=== PATIENT | female | born 1965 | race Caucasian/White ===

== ENCOUNTER 2019-07-18 10:43 | Emergency (ER) | payer BC, SELFPAY ==
[2019-07-18 11:04] VITALS: BP 150/85; PULSE 73; RESP 16; TEMP 36.7; O2SAT 100
--- NOTE | 2019-07-18 11:11 | ECG_ITS ---
Measurements Intervals [place] Rate: 65 P: 66 [place]: 117 QRS: 21 QRSD: 90 T: 4 QT: 417 QTc: 434 Interpretive Statements SINUS RHYTHM WITH SHORT [place] INTERVAL BORDERLINE T WAVE ABNORMALITY- INFERIOR LEADS BORDERLINE ECG Electronically Signed On 07-18-2019 11:38:34 CDT by Tye Paige D.O.
[2019-07-18] MEDS: LORAZEPAM INJ 2 MG/ML VIAL 0.5 MG IV PUSH (11:24)
[2019-07-18] MEDS: SODIUM CHLORIDE 0.9% IV 1,000 ML 999 ML IV CONT (11:24)
[2019-07-18 11:25] VITALS: BP 139/85; PULSE 68; RESP 11; O2SAT 100
--- NOTE | 2019-07-18 12:18 | ED.GENADULT ---
HPI - General Adult General Chief complaint: Anxiety Stated complaint: Allergic reaction Time Seen by Provider: 07/18/19 11:00 Source: patient Mode of arrival: ambulatory Limitations: no limitations History of Present Illness HPI narrative: Patient is a 54-year-old female who presents with tingling and dizziness to the emergency department noting that she ate a THC mint. Patient began to feel this way after eating. . On arrival patient hyperventilating and anxious noting tingling in the extremities and heaviness of the body with dizziness. Patient initially did not know that the mint was THC. Patient denies any pain Related Data Allergies Allergy/AdvReac Type Severity Reaction Status Date / Time No Known Allergies Allergy Verified 07/18/19 11:24 Review of Systems Review of Systems: All systems reviewed & are unremarkable except as noted in HPI and below PMFSH Family History Family History (Updated 02/13/18 @ 14:53 by DOCTOR UNKNOWN) Mother Family history of osteoporosis Family history of restless legs syndrome Father Hypertension Family history of elevated blood lipids Family history of cardiovascular disease Acute myocardial infarction Social History Social History Smoking status: Former smoker Second hand tobacco smoke exposure: No Smoking end date: 05/09/97 Alcohol intake: current Gender identity (if verbalized by the patient): Female Exam Narrative: Exam Narrative: GENERAL: Well-appearing, well-nourished, and in no acute distress. HEAD: Normocephalic, atraumatic. EYES: PERRLA and EOMI. ENT: Nares clear, no rhinorrhea or epistaxis. Mucous membranes moist. Oropharynx without tonsillar hypertrophy exudate or other lesions. No angioedema in the oropharynx NECK: Supple. No adenopathy or masses. No stridor CHEST: Clear to auscultation. No respiratory distress. No wheezes rales or rhonchi HEART: Regular rate and rhythm. No murmur heard. Normal peripheral pulses. ABDOMEN: Soft, nontender, nondistended EXTREMITIES: Normal range of motion. No edema. SKIN: Warm, dry, no rash. NEURO: No focal deficits. Alert and oriented x3. Cranial nerves II through XII grossly intact PSYCH: Normal mood and affect. Course Course Emergency Course: Patient in the room in no distress felt appropriate for discharge home Vital Signs Vital signs: Vital Signs Temperature 98.1 F 07/18/19 11:04 Pulse Rate 73 07/18/19 11:04 Respiratory Rate 16 07/18/19 11:04 Blood Pressure 150/85 H 07/18/19 11:04 Pulse Oximetry 100 07/18/19 11:04 Temperature 98.1 F 07/18/19 11:04 Pulse Rate 68 07/18/19 11:25 Respiratory Rate 11 L 07/18/19 11:25 Blood Pressure 139/85 07/18/19 11:25 Pulse Oximetry 100 07/18/19 11:25 Medical Decision Making MDM Narrative Medical decision making narrative: Patient in the room in no distress aware of case findings treatment plan and diagnosis agreeing to follow-up as directed Vital Signs Vital Signs: Vital Signs Temperature 98.1 F 07/18/19 11:04 Pulse Rate 73 07/18/19 11:04 Respiratory Rate 16 07/18/19 11:04 Blood Pressure 150/85 H 07/18/19 11:04 Pulse Oximetry 100 07/18/19 11:04 Temperature 98.1 F 07/18/19 11:04 Pulse Rate 68 07/18/19 11:25 Respiratory Rate 11 L 07/18/19 11:25 Blood Pressure 139/85 07/18/19 11:25 Pulse Oximetry 100 07/18/19 11:25 Discharge Plan Discharge Clinical Impression: Acute anxiety Patient Disposition: Home, Self-Care Condition: Stable Instructions: Antibiotic Form, Anxiety (ED) Additional Instructions: Follow up with your primary care doctor in 5-7 days for re-evaluation. Go to ER for worsening pain, vision changes, nausea/vomiting, fever/chills, weakness, chest pain, shortness of breath, numbness/tingling, slurred speech, difficulty walking, change in mental status etc. or any other concerns. Take any prescribed med
[2019-07-18 12:41] VITALS: BP 136/82; PULSE 72; RESP 16; O2SAT 98
== END 2019-07-18 12:56 | disposition home or self-care (01) ==
PROVIDERS: Emergency Provider Emergency Medicine; PCP Family Medicine
DX: F41.9 Anxiety disorder, unspecified (principal)
CPT/HCPCS: 93005; 96374; 99284; J2060; J7030

== ENCOUNTER → 2020-01-28 12:53 | Outpatient (CLI) | payer BC, SELFPAY ==
--- NOTE | ~2020-01-28 | MM_ITS ---
EXAMINATION: MM screening efra BI w he HISTORY: Screening mammogram TECHNIQUE: Craniocaudal and mediolateral oblique 3-D tomosynthesis images were obtained and synthetic 2-D images were generated. CAD analysis was submitted and interpreted. COMPARISON: 09/01/2018 bilateral digital screening mammogram 09/12/2017 and synthetic left digital mammogram and limited left breast ultrasound 08/22/2017 bilateral digital screening mammogram BREAST PARENCHYMAL COMPOSITION: There are scattered areas of fibroglandular density. FINDINGS: There is no evidence of suspicious mass, calcification, or architectural distortion to sugg est malignancy in either breast. There has been no suspicious interval change. IMPRESSION: 1. No mammographic evidence of malignancy. 2. Recommend routine screening mammography in one year. BI-RADS Category 1: Negative Reviewed, dictated and finalized at location A.
== END ==
PROVIDERS: PCP Family Medicine; Visit Provider Family Medicine
DX: Z12.31 Encounter for screening mammogram for malignant neoplasm of breast (principal)
CPT/HCPCS: 77063; 77067

== ENCOUNTER → 2020-08-18 18:00 | Outpatient (CLI) | payer BC, SELFPAY ==
--- NOTE | ~2020-08-18 | DEXA_ITS ---
Bone Density Report Name: Hannah Rodriguez Age: 55 Sex: Female Ethnicity: White Date of : 1965 Indication: osteopenia; parental hip fracture; postmenopausal Referring Provider: Jackie Philippe Study: Bone densitometry was performed. Exam Date: August 18, 2020 Accession number: [id number] Bone Density: Region BMD T-score Z-score Classification AP Spine (L1-L4) 0.859 -1.7 -0.5 Osteopenia Femoral Neck (Left) 0.718 -1.2 -0.1 Osteopenia Total Hip (Left) 0.845 -0.8 0.0 Normal Femoral Neck (Right) 0.732 -1.1 0.1 Osteopenia Total Hip (Right) 0.842 -0.8 -0.1 Normal Total Hip Mean 0.844 -0.8 -0.1 Normal World Health Organization criteria for BMD impression classify patients as: Normal (T-score at or above -1.0), Osteopenia (T-score between -1.0 and -2.5), or Osteoporosis (T-score at or below -2.5). 10-year Fracture Risk(1): Major Osteoporotic Fracture 12% Hip Fracture 0.4% Reported Risk Factors: [place] (), Neck BMD=0.718, BMI=21.8, parental fracture (1) FRAX(R) Version 3.08. Fracture probability calculated for an untreated patient. Fracture probability may be lower if the patient has received treatment. Previous Exams: Region Exam Age BMD T-score BMD Change BMD Change Date g/cm2 vs Baseline vs Previous AP Spine(L1-L4) 08/18/2020 55 0.859 -1.7 -0.058* -0.058* 08/22/2017 52 0.918 -1.2 Total Hip(Left) 08/18/2020 55 0.845 -0.8 -0.003 -0.003 08/22/2017 52 0.848 -0.8 Total Hip(Right) 08/18/2020 55 0.842 -0.8 -0.020 -0.020 08/22/2017 52 0.862 -0.7 *Denotes significance at 95% confidence level, LSC for AP Spine = 0.022 g/cm2, LSC for Total Hip = 0.027 g/cm2 Clinical Information Provided by Patient: Parent has had a hip fracture Has used the following medications: Vitamin D, Calcium Patient maximum height was 65.5 Menopause Age: 49 Does not regularly consume dairy products Drinks caffeinated beverages Onset of menses at age 14 Number of children 0 Impression: The patient has low bone mass, based on the Total Spine T-score. The patient has an estimated ten-year risk of hip fracture of 0.4% and an estimated ten-year risk of major fracture of 12%, based on the WHO FRAX algorithm. The patient has risk factors, including: parental hip fracture. The BMD for the AP Spine(L1-L4) decreased, changing by -0.058 since the last DXA exam. Discussion: BONE DENSITY IS LOW AT ONE
== END ==
PROVIDERS: PCP Family Medicine; Visit Provider Family Medicine
DX: M85.88 Other specified disorders of bone density and structure, other site (principal); M85.852 Other specified disorders of bone density and structure, left thigh; M85.851 Other specified disorders of bone density and structure, right thigh
CPT/HCPCS: 77080

== ENCOUNTER 2020-11-19 06:59 | Outpatient (CLI) | payer BC, SELFPAY ==
[2020-11-25 11:28] LABS: Endomysial Ab (IgA) Screen Negative (Negative)
== END 2020-11-19 07:00 | disposition home or self-care (01) ==
LOC: ANHLAB 07:01
PROVIDERS: PCP Family Medicine; Visit Provider Physician Assistant
DX: R19.7 Diarrhea, unspecified (principal); R10.9 Unspecified abdominal pain
CPT/HCPCS: 36415; 86255

== ENCOUNTER → 2021-03-03 07:15 | Outpatient (CLI) | payer BC, SELFPAY ==
--- NOTE | ~2021-03-03 | MM_ITS ---
EXAMINATION: MM screening efra BI w he HISTORY: Screening mammogram TECHNIQUE: Craniocaudal and mediolateral oblique 3-D tomosynthesis images were obtained and synthetic 2-D images were generated. CAD analysis was submitted and interpreted. COMPARISON: 01/28/2020, 09/01/2018 bilateral digital screening mammogram examinations diagnostic left mammogram and limited left breast ultrasound 08/22/2017 bilateral digital screening mammogram BREAST PARENCHYMAL COMPOSITION: There are scattered areas of fibroglandular density. FINDINGS: There is no evidence of suspicious mass, calcification, or architectural distortion to sugg est malignancy in either breast. There has been no suspicious interval change. IMPRESSION: 1. No mammographic evidence of malignancy. 2. Recommend routine screening mammography in one year. BI-RADS Category 1: Negative Reviewed, dictated and finalized at location A.
== END ==
PROVIDERS: PCP Family Medicine; Visit Provider Family Medicine
DX: Z12.31 Encounter for screening mammogram for malignant neoplasm of breast (principal)
CPT/HCPCS: 77063; 77067

== ENCOUNTER 2022-03-19 07:39 | Outpatient (CLI) | payer BC, SELFPAY | END 2022-03-19 07:40 | disposition home or self-care (01) | LOC: ANHAUDIO 07:40 | PROVIDERS: PCP Family Medicine; Visit Provider Physician Assistant | DX: H91.90 Unspecified hearing loss, unspecified ear (principal) | CPT/HCPCS: 92552; 92556; 92567 ==

== ENCOUNTER → 2022-06-04 10:12 | Outpatient (CLI) | payer BC, SELFPAY ==
--- NOTE | ~2022-06-04 | MM_ITS ---
EXAMINATION: MM screening efra BI w he HISTORY: Screening TECHNIQUE: Craniocaudal and mediolateral oblique 3-D tomosynthesis images were obtained and synthetic 2-D images were generated. CAD analysis was submitted and interpreted. COMPARISON: Comparison to multiple prior studies sequentially, with oldest reviewed study dated 08/22. BREAST PARENCHYMAL COMPOSITION: Breast composed of scattered areas of fibroglandular density FINDINGS: Right breast asymmetries are unchanged. There is no evidence of suspicious mass, calcificat ion, or architectural distortion to suggest malignancy in either breast. There has been no suspicious interval change. IMPRESSION: 1. No mammographic evidence of malignancy. 2. Recommend routine screening mammography in one year. BI-RADS Category 1: Negative Reviewed, dictated and finalized at location A. D SALES TRAINER
== END ==
PROVIDERS: PCP Family Medicine; Visit Provider Family Medicine
DX: Z12.31 Encounter for screening mammogram for malignant neoplasm of breast (principal)
CPT/HCPCS: 77063; 77067

== ENCOUNTER → 2023-06-29 10:11 | Outpatient (CLI) | payer BC, SELFPAY ==
--- NOTE | ~2023-06-29 | MM_ITS ---
EXAMINATION: MM screening efra BI w he HISTORY: Screening TECHNIQUE: Craniocaudal and mediolateral oblique 3-D tomosynthesis images were obtained and synthetic 2-D images were generated. CAD analysis was submitted and interpreted. COMPARISON: Comparison to multiple prior studies sequentially, with oldest reviewed study dated 11/2017. BREAST PARENCHYMAL COMPOSITION: There are scattered areas of fibroglandular density. FINDINGS: There is no evidence of suspicious mass, calcification, or architectural distortion to sugg est malignancy in either breast. There has been no suspicious interval change. IMPRESSION: 1. No mammographic evidence of malignancy. 2. Recommend routine screening mammography in one year. BI-RADS Category 1: Negative Reviewed, dictated and finalized at location A. AR TRIMMER
--- NOTE | ~2023-06-29 | DEXA_ITS ---
Bone Density Report Name: KADIE VERDUGO Age: 58 Sex: Female Ethnicity: White Date of : 1965 Indication: osteopenia; parental hip fracture; postmenopausal Referring Provider: JOAN RODRÍGUEZ Study: Bone densitometry was performed. Exam Date: June 29, 2023 Accession number: [id number] Bone Density: Region BMD T-score Z-score Classification AP Spine (L1-L4) 0.822 -2.0 -0.7 Osteopenia Femoral Neck (Left) 0.711 -1.2 0.0 Osteopenia Total Hip (Left) 0.785 -1.3 -0.4 Osteopenia Femoral Neck (Right) 0.698 -1.4 -0.1 Osteopenia Total Hip (Right) 0.802 -1.1 -0.2 Osteopenia Total Hip Mean 0.794 -1.2 -0.3 Osteopenia World Health Organization criteria for BMD impression classify patients as: Normal (T-score at or above -1.0), Osteopenia (T-score between -1.0 and -2.5), or Osteoporosis (T-score at or below -2.5). 10-year Fracture Risk(1): Major Osteoporotic Fracture 14% Hip Fracture 0.6% Reported Risk Factors: [place] (), Neck BMD=0.698, BMI=23.7, parental fracture (1) FRAX(R) Version 3.08. Fracture probability calculated for an untreated patient. Fracture probability may be lower if the patient has received treatment. Previous Exams: Region Exam Age BMD T-score BMD Change BMD Change Date g/cm2 vs Baseline vs Previous AP Spine(L1-L4) 06/29/2023 58 0.822 -2.0 -0.096* -0.037* 08/18/2020 55 0.859 -1.7 -0.058* -0.058* 08/22/2017 52 0.918 -1.2 Total Hip(Left) 06/29/2023 58 0.785 -1.3 -0.063* -0.060* 08/18/2020 55 0.845 -0.8 -0.003 -0.003 08/22/2017 52 0.848 -0.8 Total Hip(Right) 06/29/2023 58 0.802 -1.1 -0.061* -0.041* 08/18/2020 55 0.842 -0.8 -0.020 -0.020 08/22/2017 52 0.862 -0.7 *Denotes significance at 95% confidence level, LSC for AP Spine = 0.022 g/cm2, LSC for Total Hip = 0.027 g/cm2 Clinical Information Provided by Patient: Parent has had a hip fracture Has used the following medications: Vitamin D, Calcium Patient maximum height was 65.5 Menopause Age: 49 Drinks caffeinated beverages Onset of menses at age 14 Number of children 0 Impression: The patient has low bone mass, based on the Total Spine T-score. The patient has an estimated ten-year risk of hip fracture of 0.6% and an estimated ten-year risk of major fracture of 14%, based on the WHO FRAX algorithm. The patient has risk fact
== END ==
PROVIDERS: PCP Family Medicine; Visit Provider Physician Assistant
DX: Z12.31 Encounter for screening mammogram for malignant neoplasm of breast (principal); Z78.0 Asymptomatic menopausal state; M85.88 Other specified disorders of bone density and structure, other site; M85.852 Other specified disorders of bone density and structure, left thigh; M85.851 Other specified disorders of bone density and structure, right thigh
CPT/HCPCS: 77063; 77067; 77080

== ENCOUNTER 2024-07-10 15:29 | Outpatient (CLI) | payer BC, SELFPAY | END 2024-07-10 15:30 | disposition home or self-care (01) | LOC: MICIMG 15:30 | PROVIDERS: PCP Family Medicine; Visit Provider Family Medicine | DX: Z12.31 Encounter for screening mammogram for malignant neoplasm of breast (principal) | CPT/HCPCS: 77063; 77067 ==

== ENCOUNTER 2024-07-20 00:56 | Day surgery (SDC) | payer BC, SELFPAY ==
[2024-07-10 10:55] VITALS: BMI 23.8
--- OUTSIDE RECORDS SUMMARY | 2024-07-20 00:59 | XMS_ITS | Encounter Summary ---
Author Organization [facility] Address [address] [place] [address] Care Team Providers Care Training Director Name Role Phone Unavailable Primary Care Provider Unavailabl e Encounter Details Date Type Department Care Team (Late st Contact Info) Description 12/23/2000 Outpatient Historical [facility] MODEL MAKER - Medical [place] [phone] [facility] [place] [address] [address] Justin Garcia MD [address] [facility] [address] [address] Social History Tobacco Use Types Packs/Day Years Used Date Smoking Tobacco: Never Assessed Comments Unknown Sex and Gender Information Value Date Recorded Sex Assigned at Not on file 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
--- OUTSIDE RECORDS SUMMARY | 2024-07-20 00:59 | XMS_ITS | Referral Summary ---
Author Organization [facility] Address [address] [place] [address] Care Team Providers Care Sales Team Recruiter Name Role Phone Medina Brody MD Primary Care Provider [phone] Source Comments [facility],non-owned Affiliates and Associated Physician Practices is amultiple site organization consisting of ambulatory clinics and hospital sitesin [place], [place], [place] and [place]. This disclosure is being madepursuant to the Care Everywhere program and may not contain all information available regarding this patient. Last updated 18.[facility] Allergies Active Allergy Reactions Criticality Noted Date Comments Oxycodone-Aspirin Nausea and/or Vomiting 2016 Tacrolimus Swelling,Eye Redness 12/16/2023 Medications * Be aware that medications may not be up to date on this document. Alwaysverify current medications with the patient. Medication Sig Dispensed Refills Start Date End Date Status melatonin 3 MG tablet Take 3 mg by mouth nightly as needed for Insomnia Active Vitamin D3, cholecalciferol, 2000 UNITS tablet Take 1 (one) tablet by mouth 12/03/2013 Active zolpidem (AMBIEN) 10 MG tablet 0 02/16/2018 Active Calcium Citrate 250 MG Take by mouth once daily Active cyanocobalamin (VITAMIN B-12) 1000 MCG tablet Take 1 (one) tablet by mouth once daily Active Opzelura 1.5 % CREA Apply 1 g to affected area 2 times daily 06/24/2023 Active melatonin (HM Melatonin) 5 MG tablet Take 1 (one) tablet by mouth at bedtime Active Active Problems Problem Noted Date Diagnosed Date Malignant melanoma of right knee Immunizations Name Administration Dates Next Due Covid Moderna primary monovalent 12+ yr 0.5mL ,06/20/2020 INFLUENZA VACCINE 01/13/2022 INFLUENZA VACCINE, QUADR. (F LUZONE; FLULAVAL; FLUARIX; AFLURIA QUADRIVALENT; 6MO+), 0.5 ML (IIV4) 01/15/2020 Social History Tobacco Use Types Packs/Day Years Used Date Smoking Tobacco: Former Cigarettes Q uit: 05/09/2001 Smokeless Tobacco: Never Alcohol Use Standard Drinks/Week Comments Yes 4 (1 standard drink = 0.6 oz pur e alcohol) Sex and Gender Information Value Date Recorded Sex Assigned at Not on file Gender Identity Not on file Sexual Orientation Not on file Last Filed Vital Signs Vital Sign Reading Time Taken Comments Blood Pressure 111/72 02/15/2022 2:11 PM CDT Pulse 73 02/15/2022 2:11 PM CDT Temperature 36.7 C (98 F) 02/15/2022 2:11 PM CDT Respiratory Rate 18 02/15/2022 2:11 PM CDT Oxygen Saturation 97% 02/15/2022 2:11 PM CDT Inhaled Oxygen Concentration - - Weight 61.2 kg (135 lb) 02/15/2022 2:11 PM CDT Height 165.1 cm (5' 5 ) 02/15/2022 2:11 PM CDT Body Mass Index 22.47 02/15/2022 2:11 PM CDT Functional Status Functional Status Response Date of Assess ment Is person deaf or have serious hearing difficult y? No 08/05/2016 Is person blind or have serious difficulty seein g? No 08/05/2016 Does person have serious dif ficulty walking/climbing stairs? No 08/05/2016 Does person have difficulty dressing/bathing? No 08/05/2016 Does person have difficulty doing errands alone? No 08/05/2016 Cognitive Status Response Date of Assessm ent Does person have difficulty concentrating/remembering/making decisions? No 08/05/2016 Plan of Treatment Not on file Advance Directives Documents on File Type Date Recorded Patient Nutter Up Expl anation Adv Directive/Living Will/POA 08/06/2016 9:54 PM Care Teams Sales Team Recruiter Relationship Specialty Start Date End Date Medina Brody MD [address] [place] [address] PCP - General 01/03/19
--- OUTSIDE RECORDS SUMMARY | 2024-07-20 00:59 | XMS_ITS | Encounter Summary ---
Author Organization [facility] Health Address [address] [facility] [place] [address] Care Team Providers Care Clinical Trial Head Name Role Phone Unknown, Provider Primary Care Provider Medina Carmen MD Primary Care Provider [phone] Encounter Details Date Type Department Care Team (Late st Contact Info) Description 09/15/[address] [facility] Care DermPath Lab [address] [facility] [place] [address] Janay Barajas MD [address] [place] [address] Social History Tobacco Use Types Packs/Day Years Used Date Smoking Tobacco: Former Cigarettes Q uit: 05/09/2001 Smokeless Tobacco: Never Alcohol Use Standard Drinks/Week Comments Yes 4 (1 standard drink = 0.6 oz pur e alcohol) Sex and Gender Information Value Date Recorded Sex Assigned at Not on file Gender Identity Not on file Sexual Orientation Not on file documented as of this encounter Functional Status Functional Status Response Date of [...] person have difficulty concentrating/remembering/making decisions? No 08/05/2016 documented as of this encounter Plan of Treatment Not on file documented as of this encounter Procedures Procedure Name Priority Date/Time Associated Diagnosis Comments DERMATOPATHOLOGY Routine 09/14/2018 12:0 0 AM CDT documented in this encounter Results * DERMATOPATHOLOGY (09/14/2018 12:00 AM CDT) Case Report Dermatopathology Report Case: [id number] Authorizing Provider: Janay Barajas MD Collected: 09/14/2018 12:00 AM Pathologist: Delfina Hyman MD Received: 09/15/2018 10:48 AM Specimen: Skin, right FA 12:59 PM CDT DERMATOPATHOLOGY LABORATORY Final Diagnosis Specimen A. SKIN, right FA: SOLAR LENTIGO (L81.4) 12:59 PM CDT DERMATOPATHOLOGY LABORATORY Clinical History R/O melanoma, nevus. Hx of MM brown papule. 12:59 PM CDT DERMATOPATHOLOGY LABORATORY Gross Description Specimen A: Received is one formalin filled container labeled with the patient's name and designated right FA. The specimen consists of a shave measuring [id number]. Jar 0. 12:59 PM CDT DERMATOPATHOLOGY LABORATORY Microscopic Description Specimen A. SKIN, right FA: There is orthokeratosis. There is a slight increase in epidermal thickness with lentiginous buds of hyperpigmented keratinocytes. The number of melanocytes is only mildly increased. In the dermis, there is basophilic degeneration of elastic fibers. 12:59 PM CDT DERMATOPATHOLOGY LABORATORY Disclaimer An external and internal positive and negative controls are appropriate for the histochemical, immunohistochemical and immunofluorescence stain(s) in this case (if any), except where stated explicitly. The performance characteristics of the stain(s) cited in this report were developed and its performance characteristic determined by the Dermatopathology Laboratory at [facility], directed by Dr. Marie Queen. These tests need not be, and therefore are not, approved by the [place] Food and Drug Administration. The tests are used for clinical purposes. Billing Codes Specimen Charges Stain Charges 03359 1 9 12:59 PM CDT DERMATOPATHOLOGY LABORATORY Embedded Images 9 12:59 PM CDT DERMATOPATHOLOGY LABORATORY Pathology/Cytolog y TISSUE SPECIMEN FROM SKIN / Unknown 09/14/2018 09/15/2018 10:48 AM CDT Janay Barajas MD LAB - PATHOLOGY/CYTO LOGY ORDERABLES DERMATOPATHOLOGY LABORATORY [facility] - Department of Dermatology [address] [facility] 5th Floor Lab [address] [phone] documented in this encounter Visit Diagnoses Not on filedocumented in this encounter Care Teams Clinical Trial Head Relationship Specialty Start Date End Date Unknown, Provider PCP - General 08/29/17 01/02/19 Medina Brody MD [address] [place] [address] PCP - General 01/03/19 documented as of this encounter
--- OUTSIDE RECORDS SUMMARY | 2024-07-20 00:59 | XMS_ITS | Clinical Summary ---
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 Gender Identity Not on file Sexual Orientation Not on file Plan of Treatment Health Maintenance Due Date Last Done Comments DTAP/TDAP/TD VACCINES (1 - Tdap) 02/02/1983 CERVICAL CANCER SCREENING 02/02/1994 BREAST CANCER SCREENING 2004 COLORECTAL SCREENING 02/02/2009 Colorectal Cancer Screening 02/02/2009 FIT-DNA Q 3 years 02/02/2009 FIT/FOBT Q 1 year 02/02/2009 Flex Sig/CT Colonography Q 5 years 02/02/2009 ZOSTER VACCINE (1 of 2) 02/02/2014 INFLUENZA VACCINE (#1) 2023 RSV VACCINE (60+ or ) (1 - 1-dose 75+ series) 02/02/2039 HEPATITIS B VACCINES Aged Out No long er eligible based on patient's age to complete this topic PNEUMOCOCCAL VACCINE 0-49 YEARS Aged Out No longer eligible based on patient's age to complete this topic
--- OUTSIDE RECORDS SUMMARY | 2024-07-20 00:59 | XMS_ITS | Encounter Summary ---
Author Organization [facility] Address [address] [place] [address] Care Team Providers Care Derrick Builder Name Role Phone Unavailable Primary Care Provider Unavailabl e Encounter Details Date Type Department Care Team (Late st Contact Info) Description 12/10/1999 Outpatient Historical [facility] CLEANER AND PREPARER - Medical [place] [facility] [id number] [facility] [address] [address] Saul Ford MD [address] [place], [place] [id number] Social History Tobacco Use Types Packs/Day Years Used Date Smoking Tobacco: Never Assessed Comments Unknown Sex and Gender Information Value Date Recorded Sex Assigned at Not on file 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
--- OUTSIDE RECORDS SUMMARY | 2024-07-20 00:59 | XMS_ITS | Referral Summary ---
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 Name Role Phone Medina Brody MD Primary Care Provider [phone] Allergies Active Allergy Reactions Criticality Noted Date Comments Oxycodone-Aspirin Nausea And Vomiting 7 Tacrolimus Eye irritation,Swelling Medium 12/16/2023 Medications calcium citrate 250 mg calcium tablet tablet Take by mouth daily Active cholecalciferol (VITAMIN D-3) 2000 unit tablet Take 1 tablet (2,000 Units total) by mouth 4 Active cyanocobalamin (Vitamin B-12) 1,000 mcg tablet Take 1 tablet (1,000 mcg total) by mouth daily Active melatonin tablet Take 1 tablet (3 mg total) by mouth nightly as needed Active zolpidem (AMBIEN) 10 mg tablet 8 Active Opzelura 1.5 % cream Apply topically 2 (two) times a day 4 Active Active Problems Problem Noted Date Diagnosed Date Malignant melanoma of right knee 09/23/2022 09/23/2022 Social History Tobacco Use Types Packs/Day Years Used Date Smoking Tobacco: Former Smokeless Tobacco: Never Comments Unknown Sex and Gender Information Value Date Recorded Sex Assigned at Not on file Legal Sex Female 8:44 PM SHIPPING CLERK/ADMIN Gender Identity Female 03/16/2023 6:26 PM SHIPPING CLERK/ADMIN Sexual Orientation Lesbian 03/16/2023 6: 26 PM SHIPPING CLERK/ADMIN Last Filed Vital Signs Vital Sign Reading Time Taken Comments Blood Pressure 115/71 03/21/2024 11:30 AM SHIPPING CLERK/ADMIN Pulse 81 03/21/2024 11:30 AM SHIPPING CLERK/ADMIN Temperature 36.2 C (97.1 F) 03/21/2024 11:30 AM SHIPPING CLERK/ADMIN Respiratory Rate 14 03/21/2024 11:30 AM SHIPPING CLERK/ADMIN Oxygen Saturation 96% 03/21/2024 11:30 AM SHIPPING CLERK/ADMIN Inhaled Oxygen Concentration - - Weight 65.3 kg (144 lb) 03/21/2024 11:30 AM SHIPPING CLERK/ADMIN Height 166.4 cm (5' 5.5 ) 03/21/2024 11:30 AM CS T Body Mass Index 23.6 03/21/2024 11:30 AM SHIPPING CLERK/ADMIN Plan of Treatment Not on file Procedures Procedure Name Priority Date/Time Associated Diagnosis Comments COLONOSCOPY IMAGES 09/16/2014 from Last 3 Months or Most Recently Relevant to Health Maintenance Results * COLONOSCOPY IMAGES (09/16/2014) Anatomical Region Laterality Modality Other Narrative 09/16/2014 Ordered by an unspecified provider. Historical Provider GI PROCEDURE ORDERABLES F inal Result from Last 3 Months or Most Recently Relevant to Health Maintenance [place] [employer] [place] [employer] [place] [facility] Care Teams Mat Making Machine Tender Relationship Specialty Start Date End Date Medina Brody MD PCP - General Family Medicine 07/03/21
--- OUTSIDE RECORDS SUMMARY | 2024-07-20 00:59 | XMS_ITS | Patient Health Summary ---
Author Organization [facility] [employer] Address [address] [place] [address] Care Team Providers Care Hematologist Name Role Phone Medina Brody MD Primary Care Provider [phone] Note from [facility],non-owned Affiliates and Associated Physician Practices is amultiple site organization consisting of ambulatory clinics and hospital sitesin [place], [place], [place] and [place]. This disclosure is being madepursuant to the Care Everywhere program and may not contain all information available regarding this patient. Last updated 18.[facility] Allergies * Oxycodone-Aspirin(Nausea and/or Vomiting) * Tacrolimus(Swelling,Eye Redness) Medications * Be aware that medications may not be up to date on this document. Alwaysverify current medications with the patient. * melatonin 3 MG tablet Take 3 mg by mouth nightly as needed for Insomnia * Vitamin D3, cholecalciferol, 2000 UNITS tablet(Started 12/03/2013) Take 1 (one) tablet by mouth * zolpidem (AMBIEN) 10 MG tablet(Started 02/16/2018) * Calcium Citrate 250 MG Take by mouth once daily * cyanocobalamin (VITAMIN B-12) 1000 MCG tablet Take 1 (one) tablet by mouth once daily * Opzelura 1.5 % CREA(Started 06/24/2023) Apply 1 g to affected area 2 times daily * melatonin (HM Melatonin) 5 MG tablet Take 1 (one) tablet by mouth at bedtime Active Problems Problem Noted Date Diagnosed Date Malignant melanoma of right knee Immunizations * Covid Moderna primary monovalent 12+ yr 0.5mL(Given 07/18/2020, 06/20/2020) * INFLUENZA VACCINE(Given 01/13/2022) * INFLUENZA VACCINE, QUADR. (FLUZONE; FLULAVAL; FLUARIX; AFLURIA QUADRIVALENT; 6MO+), 0.5 ML (IIV4)(Given 01/15/2020) Social History Tobacco Use Types Packs/Day Years [...] Mass Index 22.47 02/15/2022 2:11 PM CDT Procedures * [place] ALLERGY PATCH TESTS(Performed 02/27/2024) Performed for Allergic contact dermatitis, unspecified trigger * DERMATOPATHOLOGY(Performed 06/21/2022) * XR CHEST 2VW(Performed 02/15/2022) Performed for Malignant melanoma of right knee (HCC) * DERMATOPATHOLOGY(Performed 05/13/2021) * XR CHEST 2VW(Performed 01/28/2021) Performed for Malignant melanoma of right knee (HCC) * XR CHEST 2VW(Performed 01/23/2020) Performed for Malignant melanoma of right knee (HCC) * XR CHEST 2VW(Performed 01/03/2019) Performed for Malignant melanoma of right knee (HCC) * DERMATOPATHOLOGY(Performed 09/14/2018) * XR CHEST 2VW(Performed 05/15/2018) Performed for Malignant melanoma of right knee (HCC) * DERMATOPATH TECHNICAL REPORT(Performed 03/16/2018) * IMAGING/RADIOLOGY/XRAY RESULTS ORDER(Performed 11/29/2017) * XR CHEST 2VW(Performed 03/09/2017) * COMPREHENSIVE METABOLIC PANEL(Performed 03/09/2017) * CBC W AUTO DIFFERENTIAL(Performed 03/09/2017) * CBC W AUTO DIFFERENTIAL(Performed 03/09/2017) * PATHOLOGY/CYTOLOGY REPORT ORDER(Performed 08/07/2016) * CARDIAC RHYTHM STRIP ORDER(Performed 08/07/2016) * OXYGEN(Performed 08/05/2016) * PATHOLOGY TISSUE EXAM (STL)(Performed 08/05/2016) Performed for Malignant melanoma of knee, right (HCC) * EXCISION LESION WITH SENTINEL NODE BIOPSY(Performed 08/05/2016) Performed for Malignant melanoma of knee, right (HCC) * NM LYMPHOSCINTIGRAPHY(Performed 08/05/2016) Performed for Malignant melanoma of right knee (HCC) * PATHOLOGY/GENETICS HISTORICAL-ONBASE(Performed 08/05/2016) * XR CHEST 2VW(Performed 07/28/2016) * EKG 12-LEAD(Performed 07/28/2016) * DERMATOPATHOLOGY(Performed 07/05/2016) Results * WA ALLERGY PATCH TESTS (02/27/2024 9:33 AM CDT) Narrative Paige Ibarra - 02/27/2024 9:33 AM CDT Paige Ibarra 02/27/2024 9:34 AM Patient here today for patch testing per order Delfina Sheppard MD. Patch test(s) to be tested: (Series /Quantity) Bulgarian Core / 89 Cosmetic / 39 Patches applied to patient as shown in Annotated Imaging. ANASTASIYA De León Delfina Hyman MD PROCEDURE/MINOR RAMÍREZ RGICAL ORDERABLES * DERMATOPATHOLOGY (06/21/2022 12:00 AM MASTER CARPENTER) Only the most recent of4 resultswithin the time period is included. Case Report Dermatopathology Report Case: [id number] Authorizing Provider: Janay Barajas MD Collected: 06/21/2022 12:00 AM Ordering Location: [facility] DermPath Lab Received: 06/22/2022 12:51 PM Pathologist: Delfina Hyman MD Specimen: Skin, left leg 3:46 PM [facility] DERMATOPATHOLOGY LABORATORY Final Diagnosis Specimen A. SKIN, left leg: PSORIASIFORM DERMATITIS (L44.8) (see microscopic description and comment) 3:46 PM [facility] DERMATOPATHOLOGY LABORATORY Clinical History Pinl papule R/O SCCIS 3:46 PM [facility] DERMATOPATHOLOGY LABORATORY Gross Description Specimen A: Received is one formalin filled container labeled with the patient's name and designated left leg. The specimen consists of a shave biopsy measuring 7x5x1 mm. Jar 0. 3:46 PM [facility] DERMATOPATHOLOGY LABORATORY Microscopic Description Specimen A. SKIN, left leg: There is psoriasiform hyperplasia of the epidermis with focal parakeratosis and spongiosis. There is a superficial, mainly lymphohistiocytic inflammatory infiltrate. Grocott's methenamine silver (GMS) stain is negative for fungal elements in the sections examined. Mib-1 stain highlights proliferating keratinocytes within the lower epidermis. COMMENT: The histological differential diagnosis includes a psoriasiform keratosis and early / partially treated psoriasis. 3:46 PM [facility] DERMATOPATHOLOGY LABORATORY Disclaimer An external and internal positive and negative controls are appropriate for the histochemical, immunohistochemical and immunofluorescence stain(s) in this case (if any), except where stated explicitly. The performance characteristics of the stain(s) cited in this report were developed and its performance characteristic determined by the Dermatopathology Laboratory at [facility], directed by Dr. Marie Queen. These tests need not be, and therefore are not, approved by the [place] Food and Drug Administration. The tests are used for clinical purposes. Billing Codes Specimen Charges Stain Charges 16190 1 [id number] 54705 1 1 3 3:46 PM [facility] DERMATOPATHOLOGY LABORATORY Embedded Images 3:46 PM [facility] DERMATOPATHOLOGY LABORATORY Pathology/Cytolog y TISSUE SPECIMEN FROM SKIN / Unknown 06/21/2022 06/22/2022 12:51 PM MASTER CARPENTER Janay Barajas MD LAB - PATHOLOGY/CYTO LOGY ORDERABLES DERMATOPATHOLOGY LABORATORY [facility] - Department of Dermatology [place] [address] [facility] [place] [address], [facility] [phone] * XR CHEST 2VW (02/15/2022 2:55 PM CDT) Only the most recent of7 resultswithin the time period is included. Anatomical Region Laterality Modality Chest Radiographic Khadra ging 02/15/2022 3:16 PM CDT Narrative 02/15/2022 4:50 PM CDT PROCEDURE: XR CHEST 2VW, DATE/TIME OF EXAM: 02/15/2022 2:55 PM, LOCATION [facility] INDICATION: C43.71: Malignant melanoma of right knee (CMS/HCC) COMPARISON: 01/28/2021 FINDINGS/IMPRESSION: The lungs are clear of consolidation. No pleural effusion or pneumothorax. Heart size and mediastinal contours are normal. No acute osseous abnormality. Report dictated by Manny Reyes MD (president & ceo [employer]). Ozzie Weinstein have personally reviewed and interpreted this examination/study. > Interpreting Provider: Ozzie Caal on 02/15/2022 4:50 PM Procedure Note Ozzie Caal MD - 02/15/2022 PROCEDURE: XR CHEST 2VW, DATE/TIME OF EXAM: 02/15/2022 2:55 PM, LOCATION [facility] INDICATION: C43.71: Malignant melanoma of right knee (CMS/HCC) COMPARISON: 01/28/2021 FINDINGS/IMPRESSION: The lungs are clear of consolidation. No pleural effusion orpneumothorax. Heart size and mediastinal contours are normal. No acute osseous abnormality. Report dictated by Manny Reyes MD (president & ceo [employer]). Ozzie Weinstein have personally reviewed and interpreted this examination/study. > Interpreting Provider: Ozzie Caal on 02/15/2022 4:50 PM Alfredo Cortés MD DIAGNOSTIC IMAGING O RDERABLES * DERMATOPATH TECHNICAL REPORT (03/16/2018 12:00 AM MASTER CARPENTER) Case Report Dermatopathology Report Case: [id number] Authorizing Provider: Janay Barajas MD Collected: 03/16/2018 12:00 AM Pathologist: Moni Murray MD Received: 03/20/2018 06:39 AM Specimen: Skin, mid back 10:40 AM [facility] DERMATOPATHOLOGY LABORATORY Clinical History 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 Braxton papule. Check margins. 10:40 AM [facility] DERMATOPATHOLOGY LABORATORY Gross Description Specimen A: Received is one formalin filled container labeled with the patient's name and designated mid back. The specimen consists of a shave measuring 0u3m5wp. The margin is inked green. Jar 0. [facility] Dermatopathology Laboratory performed the technical component only. 10:40 AM [facility] DERMATOPATHOLOGY LABORATORY Embedded Images 10:40 AM [facility] DERMATOPATHOLOGY LABORATORY DISCLAIMER An external and internal positive and negative controls are appropriate for the histochemical, immunohistochemical and immunofluorescence stain(s) in this case (if any), except where stated explicitly. The performance characteristics of the stain(s) cited in this report were developed and its performance characteristic determined by the Dermatopathology Laboratory at [facility]. These tests need not be, and therefore are not, approved by the [place] Food and Drug Administration. The tests are used for clinical purposes. 10:40 AM [facility] DERMATOPATHOLOGY LABORATORY Pathology/Cytolog y TISSUE SPECIMEN FROM SKIN / Unknown 03/16/2018 03/20/2018 6:39 AM MASTER CARPENTER Janay Barajas MD LAB - PATHOLOGY/CYTO LOGY ORDERABLES DERMATOPATHOLOGY LABORATORY [facility] - Department of Dermatology [facility] [facility] [facility] [place] [address], [facility] [phone] * IMAGING/RADIOLOGY/XRAY RESULTS ORDER (11/29/2017 7:05 AM CDT) Anatomical Region Laterality Modality Other Narrative 11/29/2017 7:05 AM CDT Ordered by an unspecified provider. Scanned Document IMAGING * CBC W AUTO DIFFERENTIAL (03/09/2017 10:19 AM CDT) Only the most recent of2 resultswithin the time period is included. WBC 4.1 3.5 - 10.5 10 3/uL [facility] RBC 4.70 3.90 - 5.00 10 6/uL [facility] Hemoglobin 13.5 12.0 - 15.5 g/dL [facility] Hematocrit 41.1 35.0 - 45.0 % [facility] MCV 87.4 81.0 - 97.0 fL [facility] MCH 28.7 28.0 - 34.0 pg [facility] MCHC 32.8 32.0 - 36.0 g/dL [facility] Platelet Count 251 150 - 400 10 3/uL [facility] RDW-SD 40.0 36.0 - 50.0 fL [facility] RDW-CV 12.5 11.2 - 14.8 % [facility] MPV 11.0 9.3 - 12.8 fL [facility] nRBC Absolute 0.00 0 10 3/uL [facility] nRBC Auto 0.0 0 /100 WBC [facility] Neutrophils % 55.8 35.0 - 70.0 % [facility] Lymphocytes % 33.2 19.7 - 55.1 % [facility] Monocytes % 6.6 3.0 - 15.0 % [facility] Eosinophils % 3.9 0.0 - 6.0 % [facility] Basophil % 0.5 0.0 - 1.5 % [facility] Neutrophils Absolute 2.3 1.6 - 7.0 10 3/uL [facility] Lymphocyte Absolute 1.4 0.8 - 2.9 10 3/uL [facility] Monocytes Absolute 0.27 0.14 - 0.66 10 3/uL [facility] Eosinophils Absolute 0.16 0.00 - 0.22 10 3/uL [facility] Basophils Absolute 0.02 0.00 - 0.06 10 3/uL [facility] Immature Granulocytes % 0.0 0.0 - 1.0 % [facility] Blood specimen (specimen) BLOOD SPECIMEN / Unknown 03/09/2017 10:19 AM CDT 03/09/2017 10:51 AM CDT Alfredo Cortés MD LAB - HEMATOLOGY ORD ERABLES [address] [phone] * COMPREHENSIVE METABOLIC PANEL (03/09/2017 10:19 AM CDT) BUN 13 7 - 26 mg/dL [facility] Creatinine 0.6 0.6 - 1.2 mg/dL [facility] Sodium 142 136 - 145 mmol/L [facility] Potassium 4.1 3.5 - 4.5 mmol/L [facility] Chloride 104 98 - 107 mmol/L [facility] CO2 28 22 - 29 mmol/L [facility] Glucose 86 70 - 115 mg/dL [facility] Calcium 9.4 8.4 - 10.2 mg/dL [facility] Protein Total 8.1 6.0 - 8.3 g/dL [facility] Albumin 4.2 3.4 - 5.0 g/dL [facility] Bilirubin Total 0.4 0.2 - 1.2 mg/dL [facility] Alkaline Phosphatase 89 40 - 150 Units/L [facility] ALT 21 0 - 55 Units/L [facility] AST 20 5 - 34 Units/L [facility] Anion Gap 14 8 - 18 [facility] BUN/Creatinine Ratio 22 7 - 23 [facility] Osmolality Calculated 293 270 - 300 mOsm/kg [facility] Albumin/Globulin Ratio 1.1 1.1 - 2.3 [facility] eGFR >60 >60 mL/min/1.7 3 m2 [facility] Blood specimen (specimen) BLOOD SPECIMEN / Unknown 03/09/2017 10:19 AM CDT 03/09/2017 10:51 AM CDT Alfredo Cortés MD LAB - CHEMISTRY [facility] [address] [phone] * PATHOLOGY/CYTOLOGY REPORT ORDER (08/07/2016 1:24 AM CDT) Narrative 08/07/2016 1:24 AM CDT Ordered by an unspecified provider. Scanned Document LAB - PATHOLOGY/CYTO LOGY ORDERABLES * CARDIAC RHYTHM STRIP ORDER (08/07/2016 1:24 AM CDT) Narrative 08/07/2016 1:24 AM CDT Ordered by an unspecified provider. Scanned Document CARDIAC SERVICES ORD ERABLES * GROSS + MICRO EXAM (STL) (08/05/2016 12:00 PM CDT) Case Report Surgical Pathology Report Case: [id number] Authorizing Provider: Alfredo Cortés MD Collected: 08/05/2016 12:00 PM [facility]ing [facility] Received: 08/05/2016 03:47 PM Pathologist: Rosaura Reddy MD Specimens: A) - Gravity Lymph Node, Right groin sentinel lymph node stitch at hotspot B) - Lesion, right knee melanoma stitch at 12 oclock C) - Lesion, right knee melanoma superior node D) - Lesion, right knee melanoma inferior node 08/10/2016 11:23 AM CDT [facility] Final Diagnosis Gravity lymph node, right groin, excision: - No evidence of malignancy in one lymph node (0/1) Skin, right knee, wide local excision: - Healing wound consistent with prior excision site - Residual atypical melanocytic proliferation not identified Skin, right knee, superior margin, excision: - No evidence of malignancy Skin, right knee, inferior margin, excision: - No evidence of malignancy KL/arm 08/10/2016 11:23 AM CDT [facility] Clinical History Right malignant melanoma of knee. Per the outside pathology report scanned into the electronic medical record the patient had a prior biopsy of a 0.71 mm Breslow thickness melanoma with 1 or more mitotic figures per mm^2 (pT1b) which was not ulcerated and not present at the margin of excision. 08/10/2016 11:23 AM CDT [facility] Gross Description The specimens are received fixed in formalin in four containers. All four containers labeled with the patient's name Hannah Rodriguez. Specimen A right groin sentinel node stitch at hotspot, consists of a roughly oval-shaped portion of yellow fatty tissue measuring 1.9 x 1.8 x 1.0 cm. A suture garner the hotspot as per the requisition. The hotspot is marked in blue ink. The specimen is bisected through the blue inked hotspot revealing white fibrous tissue and yellow fatty tissue. The specimen is submitted entirely in cassette A1, including the hotspot. Specimen B right knee melanoma stitch at 12 o'clock, consists of an oval-shaped portion of ford-white skin previously marked with blue dye with a suture at 12 o'clock as per the requisition. The specimen measures 2.9 cm from 12-6 o'clock x 2.6 cm from 3-9 o'clock with yellow fatty subcutaneous tissue excised to a depth of 0.9 cm. Centrally located on the skin surface, is a scaly brown ulcer measuring 0.6 x 0.6 cm. The ulcer comes to within 1.0 cm to the 12 o'clock margin, 1.2 cm of the 3 o'clock margin, 1.2 cm of the 6 o'clock margin, and 1.0 cm of the 9 o'clock margin. The 12 o'clock tip is inked in green, the 3 o'clock half of the specimen is inked in blue, and the 9 o'clock half of the specimen is inked in orange. The specimen is serially sectioned from 12-6 o'clock revealing the lesion to have a depth of 0.1 cm, and come to within 0.7 cm of the deep margin. The remaining cut surface demonstrates yellow-blue fatty tissue and blue-white fibrous tissue with no other nodules or lesions grossly identified. The specimen is submitted entirely as follows: B1 - 12 and 6 o'clock margins, shaved. B2 - 12 o'clock half of the specimen including portion of the lesion. B3 and B4 - 6 o'clock half of the specimen including portion of the lesion in B3. Specimen C right knee melanoma superior node, consists of a roughly triangular-shaped portion of ford-white skin measuring 3.0 x 2.0 with yellow fatty subcutaneous tissue excised to a depth of 1.1 cm. There are no lesions on the skin surface. The specimen is un-oriented and the margin is inked entirely in blue. The specimen is serially sectioned revealing ford-white fibrous tissue and yellow fatty tissue with no nodules or tumors grossly identified. The specimen is submitted entirely in cassettes C1-C2. Specimen D right knee melanoma inferior node, consists of a roughly triangular-shaped portion of pink-white skin measuring 2.5 x 2.2 cm with yellow fatty subcutaneous tissue excised to a depth of 0.9 cm. There are no lesions on the skin surface. The specimen is un-oriented and the margin is inked entirely in blue. The specimen is serially sectioned revealing white-ford fibrous tissue and yellow fatty tissue with no nodules or tumors grossly identified. The specimen is submitted entirely in cassettes D1 and D2. MR/kf 08/10/2016 11:[address] [facility] Microscopic Description Histologic sections of the right groin sentinel lymph node show no evidence of malignancy in one lymph node by multiple H&E levels, S100 and MART-1 immunohistochemical stains. Histologic sections of the right knee wide excision show healing wound consistent with prior excision site. A residual atypical melanocytic perforation is not identified. Histologic sections of the right knee superior margin show no evidence of malignancy. Histologic sections of the right knee inferior margin show no evidence of malignancy. KL/arm 08/10/2016 11:[address] [facility] Disclaimer All histochemical and/or immunohistochemical results are interpreted with controls that demonstrate appropriate staining reactions before reporting results. Note on use of immunocytochemistry reagents: This test was developed and its performance characteristic determined by [facility], Department of Laboratory Medicine. It has not been cleared or approved by the U.S. Food and Drug Administration (FDA). The FDA has determined that such clearance or approval is not necessary. The test is used for clinical purpose. It should not be regarded as investigational or for research. This laboratory is certified to perform high complexity testing. 08/10/2016 11:[address] [facility] Embedded Images 08/10/2016 11:[address] [facility] Pathology/Cytology SPECIMEN FROM SENTINEL LYMPH NODE / Unknown 08/05/2016 12:00 PM CDT 08/05/2016 3:47 PM CDT Miscellaneous samples (specimen) LESION SPECIMEN / Unknown 08/05/2016 12:08 PM CDT 08/05/2016 3:47 PM CDT Miscellaneous samples (specimen) LESION SPECIMEN / Unknown 08/05/2016 12:13 PM CDT 08/05/2016 3:47 PM CDT Miscellaneous samples (specimen) LESION SPECIMEN / Unknown 08/05/2016 12:14 PM CDT 08/05/2016 3:47 PM CDT Alfredo Cortés MD LAB - PATHOLOGY/CYTO LOGY ORDERABLES [facility] [address] [address] * NM LYMPHOSCINTIGRAPHY (08/05/2016 10:48 AM CDT) Anatomical Region Laterality Modality Nuclear Digisoni cs 08/05/2016 10:4 9 AM CDT Impressions 08/05/2016 12:28 PM CDT Radiopharmaceutical injection performed by Dr. Cortés. Uptake is visualized in the right groin. Edited by Mendy James on 08/05/2016 10:52 AM Narrative 08/05/2016 12:28 PM CDT NUCLEAR MEDICINE LYMPHOSCINTIGRAPHY OF RIGHT KNEE INDICATION: 51-year-old female with diagnosis of malignant melanoma of the right knee. Surgery to follow. TECHNIQUE: 1.02 mCi technetium 99m labeled Lymphoseek was injected in the right knee by Dr. Cortés. Imaging was performed. FINDINGS: Following administration of radiopharmaceutical, there is uptake within a lymph node in the right groin. Procedure Note Cynthia King MD - 08/05/2016 NUCLEAR MEDICINE LYMPHOSCINTIGRAPHY OF RIGHT KNEE INDICATION: 51-year-old female with diagnosis of malignant melanoma of the right knee. Surgery to follow. TECHNIQUE: 1.02 mCi technetium 99m labeled Lymphoseek was injected in the right knee by Dr. Cortés. Imaging was performed. FINDINGS: Following administration of radiopharmaceutical, there is uptake within a lymph node in the right groin. IMPRESSION Radiopharmaceutical injection performed by Dr. Cortés. Uptake is visualized in the right groin. Edited by Mendy James on 08/05/2016 10:52 AM Alfredo Cortés MD NM ORDERABLES * PATHOLOGY/GENETICS HISTORICAL-ONBASE (08/05/2016) 08/05/2016 Historical Provider LAB - CHEMISTRY O RDERABLES [facility] [address] [place] [address], [facility] * EKG 12-LEAD (07/28/2016 12:00 AM CDT) 07/28/2016 Regine Horton MD ECG ORDERABLES [facility] RADIOLOG[facility] Care Teams Hematologist Relationship Specialty Start Date End Date Medina Brody MD [address] [place] [address] PCP - General 01/03/19
--- OUTSIDE RECORDS SUMMARY | 2024-07-20 00:59 | XMS_ITS | Clinical Summary ---
Author Organization [facility] [employer] Address [address] [place] [address] Care Team Providers Care Satellite Television Installer Name Role Phone Medina Brody MD Primary Care Provider [phone] Source Comments [facility] [employer],non-owned Affiliates and Associated Physician Practices is amultiple site organization consisting of ambulatory clinics and hospital sitesin [place], [place], [place] and [place]. This disclosure is being madepursuant to the Care Everywhere program and may not contain all information available regarding this patient. Last updated 18.[facility] [employer] Allergies Active Allergy Reactions Criticality Noted Date [...] AFLURIA QUADRIVALENT; 6MO+), 0.5 ML (IIV4) 01/15/2020 Family History Medical History Relation Name Comments Migraine Brother CAD (Coronary Artery Disease) Father Hypertension Father Asthma Mother Osteoporosis Mother Arthritis - Osteo Neg Hx Arthritis - Rheumatoid Neg Hx Seizures Neg Hx Thyroid Disease Neg Hx Relation Name Status Comments Brother Father Mother Social History Tobacco Use Types Packs/Day Years [...] Mass Index 22.47 02/15/2022 2:11 PM CDT Plan of Treatment Health Maintenance Due Date Last Done Comments COLOGUARD (AGES 45-75) - COL ON CA SCREENING 1964 COLON MONITORING 1964 COLONOSCOPY - COLON CA SCREENING 1964 CT COLONOGRAPHY - COLON CA SCREENING 1964 Colorectal Cancer Screening 1964 FIT - COLON CA SCREENING 1964 FLEX SIG - COLON CA SCREENING 1964 LIPID TESTING 1964 MAMMOGRAM 1964 PAP SMEAR 1964 HIV SCREENING 02/02/1979 HEPATITIS C SCREENING 01/29/1982 DTAP/TDAP/TD VACCINES (1 - Tdap) 02/02/1983 PNEUMOCOCCAL VACCINE 50+ (1 of 1 - PCV) 02/02/2014 ZOSTER VACCINE (1 of 2) 02/02/2014 COVID-19 VACCINE (3 - 2023-2 5 season) 2024 07/18/2020, 06/20/2020 INFLUENZA VACCINE (#1) 2024 2, 01/15/2020 DEPRESSION SCREENING 05/09/2024 Respiratory Syncytial Virus (RSV) Vaccine Pt: or over 60 yrs (1 - 1-dose 75+ series) 02/02/2039 HEPATITIS B VACCINE Aged Out No longe r eligible based on patient's age to complete this topic HIB VACCINE Aged Out No longer eligi ble based on patient's age to complete this topic HPV VACCINE Aged Out No longer eligi ble based on patient's age to complete this topic MENINGOCOCCAL (Group B) VACCINE SHARED DECISION-MAKING Aged Out No longer eligible based on patient's age to complete this topic MENINGOCOCCAL GROUPS A/C/Y/W VACCINE Aged Out No longer eligible b ased on patient's age to complete this topic Advance Directives Documents on File Type Date Recorded Patient Licensed Practical Nurse Clinic Nurse Expl anation Adv Directive/Living Will/POA 08/06/2016 9:54 PM Care Teams Satellite Television Installer Relationship Specialty Start Date End Date Medina Brody MD [address] [place] [address] PCP - General 01/03/19
--- OUTSIDE RECORDS SUMMARY | 2024-07-20 00:59 | XMS_ITS | Encounter Summary ---
Author Organization [facility] Address [address] [place] [address] Care Team Providers Care Automotive Mechanical Engineer Name Role Phone Unknown, Provider Primary Care Provider Medina Carmen MD Primary Care Provider [phone] Encounter Details Date Type Department Care Team (Late st Contact Info) Description 03/20/2018 Lab Requisition [facility] Care [facility] Lab [address] [place] [address] Janay Barajas MD [address] [place] [address] Social History Tobacco Use Types Packs/Day Years [...] Procedure Name Priority Date/Time Associated Diagnosis Comments DERMATOPATH TECHNICAL REPORT Routine 03/16/2018 12:00 AM FAX MACHINE OPERATOR documented in this encounter Results * DERMATOPATH TECHNICAL REPORT (03/16/2018 12:00 AM FAX MACHINE OPERATOR) Case Report Dermatopathology Report Case: [id number] Authorizing Provider: Janay Barajas MD Collected: 03/16/2018 12:00 AM Pathologist: Moni Murray MD Received: 03/20/2018 06:39 AM Specimen: Skin, mid back 10:40 AM [facility] DERMATOPATHOLOGY [facility]ORAT[facility] Clinical History 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 E. Lopez papule. Check margins. 10:40 AM [facility] DERMATOPATHOLOGY [facility]ORAT[facility] Gross Description Specimen A: Received is one formalin filled container labeled with the patient's name and designated mid back. The specimen consists of a shave measuring [id number]. The margin is inked green. Jar 0. [facility] Dermatopathology Laboratory performed the technical component only. 10:40 AM [facility] DERMATOPATHOLOGY LABORATORY Embedded Images 10:40 AM [facility] DERMATOPATHOLOGY LABORATORY DISCLAIMER An external and internal positive and negative controls are appropriate for the histochemical, immunohistochemical and immunofluorescence stain(s) in this case (if any), except where stated explicitly. The performance characteristics of the stain(s) cited in this report were developed and its performance characteristic determined by the Dermatopathology Laboratory at [facility]. These tests need not be, and therefore are not, approved by the [place] Food and Drug Administration. The tests are used for clinical purposes. 10:40 AM [facility] DERMATOPATHOLOGY LABORATORY Pathology/Cytolog y TISSUE SPECIMEN FROM SKIN / Unknown 03/16/2018 03/20/2018 6:39 AM FAX MACHINE OPERATOR Janay Barajas MD LAB - PATHOLOGY/CYTO LOGY ORDERABLES DERMATOPATHOLOGY LABORATORY [facility] - Department of Dermatology [address] [place] [address], [facility] [phone] documented in this encounter Visit Diagnoses Not on filedocumented in this encounter Care Teams Automotive Mechanical Engineer Relationship Specialty Start Date End Date Unknown, Provider PCP - General 08/29/17 01/02/19 Medina Brody MD [address] [place] [address] PCP - General 01/03/19 documented as of this encounter
--- OUTSIDE RECORDS SUMMARY | 2024-07-20 00:59 | XMS_ITS | Clinical Summary ---
Author Organization [facility] Address [facility] [place] [address] Care Team Providers Care Rum Processing Operator Name Role Phone Medina Brody MD Primary Care Provider [phone] Allergies Active Allergy Reactions Criticality Noted Date [...] Malignant melanoma of right knee 09/23/2022 09/23/2022 Medical History Medical History Date Comments Cancer (HCC) Heart murmur Osteoporosis Family History Medical History Relation Name Comments Diabetes Father Heart disease Father Hypertension Father Relation Name Status Comments Father Social History Tobacco Use Types Packs/Day Years Used Date Smoking Tobacco: Former Smokeless Tobacco: Never Comments Unknown Sex and Gender Information Value Date Recorded Sex Assigned at Not on file Legal Sex Female 8:44 PM EVAPORATOR SUPERVISOR Gender Identity Female 03/16/2023 6:26 PM EVAPORATOR SUPERVISOR Sexual Orientation Lesbian 03/16/2023 6: 26 PM EVAPORATOR SUPERVISOR Obstetrics History Last Filed Vital Signs Vital Sign Reading Time Taken Comments Blood Pressure 115/71 03/21/2024 11:30 AM EVAPORATOR SUPERVISOR Pulse 81 03/21/2024 11:30 AM EVAPORATOR SUPERVISOR Temperature 36.2 C (97.1 F) 03/21/2024 11:30 AM EVAPORATOR SUPERVISOR Respiratory Rate 14 03/21/2024 11:30 AM EVAPORATOR SUPERVISOR Oxygen Saturation 96% 03/21/2024 11:30 AM EVAPORATOR SUPERVISOR Inhaled Oxygen Concentration - - Weight 65.3 kg (144 lb) 03/21/2024 11:30 AM EVAPORATOR SUPERVISOR Height 166.4 cm (5' 5.5 ) 03/21/2024 11:30 AM CS T Body Mass Index 23.6 03/21/2024 11:30 AM EVAPORATOR SUPERVISOR Plan of Treatment Health Maintenance Due Date Last Done Comments Breast Cancer Screening-Mammogram 1964 Cervical Cancer Screening 1964 Depression Screening 1964 Hepatitis C Screening 1964 DTaP/Tdap/Td Vaccine (1 - Tdap) 02/02/1975 Hepatitis B Screening 02/02/1982 Regular Well Visit/Exam 18-64 02/02/1982 Zoster Vaccine (1 of 2) 02/02/2014 Covid-19 Vaccine ( season) 2024 03/06/2021, 07/18/2020, 06/20/2020 Influenza Vaccine (#1) 2024 2, 02/02/2021, 01/15/2020, Additional history exists Colon Cancer Screening-Colonoscopy 09/16/2024 09/16/2014, 09/16/2014 Pneumococcal vaccine <65 Aged Out No longer eligible based on patient's age to complete this topic Procedures Procedure Name Priority Date/Time Associated Diagnosis Comments COLONOSCOPY IMAGES 09/16/2014 from Last 3 Months or Most Recently Relevant to Health Maintenance Results * COLONOSCOPY IMAGES (09/16/2014) Anatomical Region Laterality Modality Other Narrative 09/16/2014 Ordered by an unspecified provider. us Historical Provider GI PROCEDURE ORDERABLES F inal Result from Last 3 Months or Most Recently Relevant to Health Maintenance Insurance [employer] Care Teams Rum Processing Operator Relationship Specialty Start Date End Date Medina Brody MD PCP - General Family Medicine 07/03/21
[2024-07-20 07:20] VITALS: BP 104/78; PULSE 65; RESP 18; TEMP 36; O2SAT 100
[2024-07-20] MEDS: LACTATED RINGERS 1,000 ML 150 ML IV CONT (07:29)
--- NOTE | 2024-07-20 07:50 | WPDANESEPPF ---
Anes - Initial Pre Proc Eval Procedure: Operation Date: 07/20/24 08:30 Proposed Procedures p Screening Colonoscopy - Wilber Catalan MD Date/Time: 07/20/24 07:50 Surgeon: Wilber Catalan MD Pre Op Diagnosis: screening colon Patient Data Age: 59 Gender: F Height: 1.65 m Weight: 65.2 kg Last Vital Signs Temp 36.0 C L 07/20/24 07:20 Pulse 65 07/20/24 07:20 Resp 18 07/20/24 07:20 BP 104/78 07/20/24 07:20 Pulse Ox 100 07/20/24 07:20 O2 Del Method Room Air 07/20/24 07:20 Allergies Allergy/AdvReac Type Severity Reaction Status Date / Time No Known Allergies Allergy Verified 07/20/24 07:19 Home Medications ?Medication ?Instructions ?Recorded ?Confirmed ?Type calcium citrate 200 mg PO DAILY 06/17/20 07/20/24 History cholecalciferol (vitamin D3) 50 50 mcg PO DAILY 06/17/20 07/20/24 History mcg (2,000 unit) capsule mecobalamin (vitamin B12) 5,000 5,000 mcg PO DAILY 06/17/20 07/20/24 History mcg lozenge melatonin 5 mg capsule 5 mg PO DAILY 06/17/20 07/20/24 History ruxolitinib 1.5 % topical cream 1 applic topical BID 03/03/22 07/20/24 History phytosterol 300 mg-pantethine 100 cap PO 05/12/22 04/09/24 History mg capsule (CholestOff Complete) Patient hx anesthesia problems: none Family hx anesthesia problems: none Results Review: All pre-operative results and documents have been reviewed as part of the pre-operative evaluation. [facility] Past Medical History Medical History HLD (hyperlipidemia) Pre-diabetes Normal colonoscopy (~2015) Melanoma Surgical History Surgical History (Updated 07/20/24 @ 07:51 by Kamran Hudson MD) H/O colonoscopy H/O melanoma excision H/O sinus surgery Family History Family History Mother Family history of osteoporosis Family history of restless legs syndrome Celiac disease Family history of elevated blood lipids Father Hypertension Family history of elevated blood lipids Family history of cardiovascular disease Acute myocardial infarction Diabetes mellitus Renal disease Social History Social History Smoking packs per day: 1 Smoking cigarettes per day: 20.0 Years smoked: 20 Smoking pack-years: 20.00 Smoking status: Former smoker Tobacco type: cigarettes Second hand tobacco smoke exposure: Yes Smoking end date: 05/09/97 Alcohol intake: current Drinks per week: 3 Substance use: never Substance use type: does not use Lack of Transportation: No Lack of Food: Never True Current Housing: I Have Housing Concerned About Future Housing: No Difficulty Paying Gas/Electric Bills: No Difficulty Paying for Meds: No Currently Unemployed: No Education: Master's Degree or Higher Difficulty w/ Childcare or Family Care: No Living arrangements: with family Occupation/Education: occupation Gender identity (if verbalized by the patient): Female Spiritual care concerns: No Agree to blood products: Yes Anes - Eval Final PreProcedure Day of Procedure 07/20/24 07:50 Patient weight: normal Heart: regular rate and rhythm Lungs: clear to auscultation Airway: Mallampati scale class II Neurological: alert and oriented Last oral intake: >/= 8 hours ASA classification: II Emergent: no Anesthetic plan: proceed Anesthesia type and monitoring: general GIVS and standard monitoring Results Review: All pre-operative results and documents have been reviewed as part of the pre-operative evaluation. Informed Consent: The patient's anesthetic plan and its attendant risks and benefits were discussed with the patient/family/POA. Questions were solicited and answers provided to the satisfaction of the patient/family/POA.
--- NOTE | 2024-07-20 08:13 | P.HP_ITS ---
History of Present Illness History of Present Illness Consent: Risks, benefits, and alternatives have been discussed and questions answered. Patient agrees to proceed with procedure. Chief complaint: screening colon Narrative: Hannah Rodriguez is a 59 year old female here for screening colonoscopy, last one 10 years ago Review of Systems Review of Systems: All systems reviewed & are unremarkable except as noted in HPI and below PMFSH Past Medical History Medical History (Updated 07/20/24 @ 08:15 by Wilber Catalan MD) Colon cancer screening HLD (hyperlipidemia) Pre-diabetes Normal colonoscopy (~2016) Melanoma Surgical History Surgical History (Updated 07/20/24 @ 07:51 by Kamran Hudson MD) H/O colonoscopy H/O melanoma excision H/O sinus surgery Family History Family History Mother Family history of osteoporosis Family history of restless legs syndrome Celiac disease Family history of elevated blood lipids Father Hypertension Family history of elevated blood lipids Family history of cardiovascular disease Acute myocardial infarction Diabetes mellitus Renal disease Social History Social History Smoking packs per day: 1 Smoking cigarettes per day: 20.0 Years smoked: 20 Smoking pack-years: 20.00 Smoking status: Former smoker Tobacco type: cigarettes Second hand tobacco smoke exposure: Yes Smoking end date: 05/09/97 Alcohol intake: current Drinks per week: 3 Substance use: never Substance use type: does not use Lack of Transportation: No Lack of Food: Never True Current Housing: I Have Housing Concerned About Future Housing: No Difficulty Paying Gas/Electric Bills: No Difficulty Paying for Meds: No Currently Unemployed: No Education: Master's Degree or Higher Difficulty w/ Childcare or Family Care: No Living arrangements: with family Occupation/Education: occupation Gender identity (if verbalized by the patient): Female Spiritual care concerns: No Agree to blood products: Yes Meds Home Medications and Allergies Home Medications ?Medication ?Instructions ?Recorded ?Confirmed ?Type calcium citrate 200 mg PO DAILY 06/17/20 07/20/24 History cholecalciferol (vitamin D3) 50 50 mcg PO DAILY 06/17/20 07/20/24 History mcg (2,000 unit) capsule mecobalamin (vitamin B12) 5,000 5,000 mcg PO DAILY 06/17/20 07/20/24 History mcg lozenge melatonin 5 mg capsule 5 mg PO DAILY 06/17/20 07/20/24 History ruxolitinib 1.5 % topical cream 1 applic topical BID 03/03/22 07/20/24 History phytosterol 300 mg-pantethine 100 cap PO 05/12/22 04/09/24 History mg capsule (CholestOff Complete) Allergies Allergy/AdvReac Type Severity Reaction Status Date / Time No Known Allergies Allergy Verified 07/20/24 07:19 Vital Signs Vital Signs - 24 hr 07/20/24 07:20 Temperature 96.8 F L Pulse Rate 65 Respiratory Rate 18 Blood Pressure 104/78 Pulse Oximetry 100 Oxygen Delivery Room Air Exam Const: General: comfortable and no acute distress HENMT: Face/Nose/Sinus: Normal nares present Eyes: General: appearance normal, both eyes and all related structures Neck: Neck: no JVD Resp: Auscultation: clear to auscultation bilaterally Cardio: Rate: regular rate Rhythm: regular rhythm GI: Inspection: non-distended GI Palp: Yes Soft to palpation Skin: General skin exam: normal color Neuro: General: gait normal Speech: normal speech Extrem: General: normal to inspection Psych: Mental Status: mental status grossly normal Assessment and Plan Assessment and plan (1) Colon cancer screening: Code(s): Z12.11 - Encounter for screening for malignant neoplasm of colon Status: Acute Assessment and Plan: colonoscopy
[2024-07-20 08:32] VITALS: BP 112/69; PULSE 59; RESP 18; O2SAT 100
[2024-07-20 08:42] VITALS: BP 107/70; PULSE 61; RESP 15; O2SAT 98
[2024-07-20 08:52] VITALS: BP 122/75; PULSE 60; RESP 18; O2SAT 98
== END 2024-07-20 09:00 | disposition home or self-care (01) ==
PROVIDERS: PCP Family Medicine; Referring Provider Family Medicine; Visit Provider Internal Medicine Gastroenterology
PROC: 0DJD8ZZ Inspection of Lower Intestinal Tract, Via Natural or Artificial Opening Endoscopic (ICD-10-PCS; CPT 45378; principal; 2024-07-20 08:30)
DX: Z12.11 Encounter for screening for malignant neoplasm of colon (principal); K63.5 Polyp of colon; Z87.891 Personal history of nicotine dependence
CPT/HCPCS: 45385; 88305; J2003; J2704; J7120

== ENCOUNTER 2025-03-18 08:40 | Outpatient (CLI) | payer BC, SELFPAY ==
--- OUTSIDE RECORDS SUMMARY | 2025-03-18 08:54 | XMS_ITS | Clinical Summary ---
Author Organization [facility] Administrative Offices Address [address] [place] [address] Care Team Providers Care Poly Packer And Heat Sealer Name Role Phone Unavailable Primary Care Provider Unavailabl e Social History Tobacco Use Types Packs/Day Years Used Date Smoking Tobacco: Never Assessed Comments Unknown Sex and Gender Information Value Date Recorded Sex Assigned at Not on file Legal Sex Female 4:02 AM INSPECTOR OUTSIDE PRODUCTION Gender Identity Not on file Sexual Orientation Not on file Plan of Treatment Health Maintenance Due Date Last Done Comments DTAP/TDAP/TD VACCINES (1 - Tdap) 02/02/1983 HPV/Cotest (21-29) 02/02/1985 CERVICAL CANCER SCREENING 02/02/1994 HPV/Cotest (30-65) 02/02/1994 PAP SMEAR 02/02/1994 BREAST CANCER SCREENING 2004 COLORECTAL SCREENING 02/02/2009 Colorectal Cancer Screening 02/02/2009 FIT-DNA Q 3 years 02/02/2009 FIT/FOBT Q 1 year 02/02/2009 Flex Sig/CT Colonography Q 5 years 02/02/2009 ZOSTER VACCINE (1 of 2) 02/02/2014 INFLUENZA VACCINE (#1) 2024 RSV VACCINE (60+ or ) (1 - 1-dose 75+ series) 02/02/2039
--- OUTSIDE RECORDS SUMMARY | 2025-03-18 08:54 | XMS_ITS | Encounter Summary ---
Author Organization [facility] Address [address] [place] [address] Care Team Providers Care Farm Reporter Name Role Phone Unavailable Primary Care Provider Unavailabl e Encounter Details Date Type Department Care Team (Late st Contact Info) Description 12/23/2000 Outpatient Historical [facility] CABLE CUTTER AND SWAGER - Medical [place] [address] [facility] [address] [address] Justin Garcia MD [address] [facility] [address] [address] Social History Tobacco Use Types Packs/Day Years Used Date Smoking Tobacco: Never Assessed Comments Unknown Sex and Gender Information Value Date Recorded Sex Assigned at Not on file Legal Sex Female 4:02 AM FORK LIFT TECHNICIAN Gender Identity Not on file Sexual Orientation Not on file documented as of this encounter Plan of Treatment Not on file documented as of this encounter Visit Diagnoses Not on filedocumented in this encounter
--- OUTSIDE RECORDS SUMMARY | 2025-03-18 08:54 | XMS_ITS | Encounter Summary ---
Author Organization [facility] Address [address] [place] [address] Care Team Providers Care Enterprise Application Architect Name Role Phone Unavailable Primary Care Provider Unavailabl e Encounter Details Date Type Department Care Team (Late st Contact Info) Description 12/10/1999 Outpatient Historical [facility] ELECTRIC ORGAN ASSEMBLER - Medical [place] [facility] [address] [facility] [address] [address] Saul Ford MD [address] [place], [place] [id number] Social History Tobacco Use Types Packs/Day Years Used Date Smoking Tobacco: Never Assessed Comments Unknown Sex and Gender Information Value Date Recorded Sex Assigned at Not on file Legal Sex Female 4:02 AM CLINICAL ACADEMIC ALLERGIST Gender Identity Not on file Sexual Orientation Not on file documented as of this encounter Plan of Treatment Not on file documented as of this encounter Visit Diagnoses Not on filedocumented in this encounter
--- OUTSIDE RECORDS SUMMARY | 2025-03-18 08:55 | XMS_ITS | Clinical Summary ---
Author Organization [facility] Address [facility] [place] [address] Care Team Providers Care Drier Take Off Tender Name Role Phone Medina Brody MD Primary Care Provider [phone] Allergies Active Allergy Reactions Criticality Noted Date [...] on file Legal Sex Female 8:44 PM PUDDLER PILE DRIVING Gender Identity Female 03/16/2023 6:26 PM PUDDLER PILE DRIVING Sexual Orientation Lesbian 03/16/2023 6: 26 PM PUDDLER PILE DRIVING Last Filed Vital Signs Vital Sign Reading Time Taken Comments Blood Pressure 115/71 03/21/2024 11:30 AM PUDDLER PILE DRIVING Pulse 81 03/21/2024 11:30 AM PUDDLER PILE DRIVING Temperature 36.2 C (97.1 F) 03/21/2024 11:30 AM PUDDLER PILE DRIVING Respiratory Rate 14 03/21/2024 11:30 AM PUDDLER PILE DRIVING Oxygen Saturation 96% 03/21/2024 11:30 AM PUDDLER PILE DRIVING Inhaled Oxygen Concentration - - Weight 65.3 kg (144 lb) 03/21/2024 11:30 AM PUDDLER PILE DRIVING Height 166.4 cm (5' 5.5) 03/21/2024 11:30 AM CS T Body Mass Index 23.6 03/21/2024 11:30 AM PUDDLER PILE DRIVING Plan of Treatment Health Maintenance Due Date Last Done Comments Breast Cancer Screening-Mammogram 1964 Cervical Cancer Screening 1964 Depression Screening 1964 Hepatitis C Screening 1964 DTaP/Tdap/Td Vaccine (1 - Tdap) 02/02/1975 Hepatitis B Screening 02/02/1982 Regular Well Visit/Exam 18-64 02/02/1982 Zoster Vaccine (1 of 2) 02/02/2014 Colon Cancer Screening-Colonoscopy 09/16/2024 09/16/2014, 09/16/2014 Covid-19 Vaccine ( season) 2025 03/06/2021, 07/18/2020, 06/20/2020 Influenza Vaccine (#1) 2025 2, 02/02/2021, 01/15/2020, Additional history exists Pneumococcal vaccine <65 Aged Out No longer [...] Most Recently Relevant to Health Maintenance Insurance [employer] Care Teams Drier Take Off Tender Relationship Specialty Start Date End Date Medina Brody MD PCP - General Family Medicine 07/03/21
== END 2025-03-18 08:41 | disposition home or self-care (01) ==
LOC: ANHAUDIO 08:40
PROVIDERS: PCP Family Medicine Adolescent Medicine; Visit Provider Otolaryngology
DX: H69.92 Unspecified Eustachian tube disorder, left ear (principal)
CPT/HCPCS: 92557; 92567

== ENCOUNTER 2025-04-05 11:00 | Outpatient (CLI) | payer BC, SELFPAY ==
--- OUTSIDE RECORDS SUMMARY | 2025-04-05 11:02 | XMS_ITS | Encounter Summary ---
Author Organization [facility] Address [address] [place] [address] Care Team Providers Care Entry Level Lab Technician Name Role Phone Unknown, Provider Primary Care Provider Medina Carmen MD Primary Care Provider [phone] Encounter Details Date Type Department Care Team (Late st Contact Info) Description 09/15/2018 Lab Requisition [facility] Care DermPath Lab [address] [facility] [address] [place] [address] Janay Barajas MD [address] [facility] [address] [place] [address] Social History Tobacco Use Types Packs/Day Years Used Date Smoking Tobacco: Former Cigarettes 0 Q uit: 05/09/2001 Smokeless Tobacco: Never Alcohol Use Standard Drinks/Week Comments Yes 4 (1 standard drink = 0.6 oz pur e alcohol) Comments No Sex and Gender Information Value Date Recorded Sex Assigned at Not on file Legal Sex Female 10:58 AM CDT Gender Identity Not on file Sexual Orientation Not on file documented as of this encounter Functional Status * Is person deaf or have serious hearing difficulty? Answer Date of Assessment Author No 08/05/2016 9:21 AM Bailey Omalley RN * Is person blind or have serious difficulty seeing? Answer Date of Assessment Author No 08/05/2016 9:21 AM Bailey Omalley RN * Does person have serious difficulty walking/climbing stairs? Answer Date of Assessment Author No 08/05/2016 9:21 AM CDT Bailey Velez RN * Does person have difficulty dressing/bathing? Answer Date of Assessment Author No 08/05/2016 9:21 AM CDT Bailey Velez RN * Does person have difficulty doing errands alone? Answer Date of Assessment Author No 08/05/2016 9:21 AM MARYT Bailey Velez RN documented as of this encounter Mental Status * Does person have difficulty concentrating/remembering/making decisions? Answer Entry Date Author No 08/05/2016 9:21 AM CDT Bailey Velez RN documented in this encounter Plan of Treatment Not on file documented as of this encounter Procedures Procedure Name Priority Date/Time Associated Diagnosis Comments DERMATOPATHOLOGY Routine 09/14/2018 12:0 0 AM CDT documented in this encounter Results * DERMATOPATHOLOGY (09/14/2018 12:00 AM CDT) Case Report Dermatopathology Report Case: [id number] Authorizing Provider: Janay Barajas MD Collected: 09/14/2018 12:00 AM Pathologist: Delfina Hyman MD Received: 09/15/2018 10:48 AM Specimen: Skin, right FA 12:59 PM CDT DERMATOPATHOLOGY LABORATORY Final Diagnosis Specimen A. SKIN, right FA: SOLAR LENTIGO (L81.4) 9 12:59 PM CDT DERMATOPATHOLOGY LABORATORY at 1259 CDT Clinical History R/O melanoma, nevus. Hx of MM brown papule. 9 12:59 PM CDT DERMATOPATHOLOGY LABORATORY Gross Description Specimen A: Received is one formalin filled container labeled with the patient's name and designated right FA. The specimen consists of a shave measuring [id number]. Jar 0. 9 12:59 PM CDT DERMATOPATHOLOGY LABORATORY Microscopic Description Specimen A. SKIN, right FA: There is orthokeratosis. There is a slight increase in epidermal thickness with lentiginous buds of hyperpigmented keratinocytes. The number of melanocytes is only mildly increased. In the dermis, there is basophilic degeneration of elastic fibers. 9 12:59 PM CDT DERMATOPATHOLOGY LABORATORY Disclaimer An external and internal positive and negative controls are appropriate for the histochemical, immunohistochemical and immunofluorescence stain(s) in this case (if any), except where stated explicitly. The performance characteristics of the stain(s) cited in this report were developed and its performance characteristic determined by the Dermatopathology Laboratory at [facility], directed by Dr. Marie Queen. These tests need not be, and therefore are not, approved by the [place] Food and Drug Administration. The tests are used for clinical purposes. Billing Codes Specimen Charges Stain Charges 58045 1 9 12:59 PM CDT DERMATOPATHOLOGY LABORATORY Embedded Images 9 12:59 PM CDT DERMATOPATHOLOGY LABORATORY Pathology/Cytolog y TISSUE SPECIMEN FROM SKIN / Unknown 09/14/2018 09/15/2018 10:48 AM CDT Janay Barajas MD LAB - PATHOLOGY/CYTOLOGY ORD ERABLES Final Result DERMATOPATHOLOGY LABORATORY [facility] - Department of Dermatology [address] [place] [address], [facility] [phone] documented in this encounter Visit Diagnoses Not on filedocumented in this encounter Care Teams Entry Level Lab Technician Relationship Specialty Start Date End Date Unknown, Provider PCP - General 08/29/17 01/02/19 Medina Brody MD [address] [place] [address] PCP - General 01/03/19 documented as of this encounter
--- OUTSIDE RECORDS SUMMARY | 2025-04-05 11:02 | XMS_ITS | Clinical Summary ---
Author Organization [facility] Administrative Offices Address [address] [place] [address] Care Team Providers Care Produce Specialist Name Role Phone Unavailable Primary Care Provider Unavailabl e Social History Tobacco Use Types Packs/Day Years Used Date Smoking Tobacco: Never Assessed Comments Unknown Sex and Gender Information Value Date Recorded Sex Assigned at Not on file Legal Sex Female 4:02 AM HERB DIGGER Gender Identity Not on file Sexual Orientation [...]
--- OUTSIDE RECORDS SUMMARY | 2025-04-05 11:02 | XMS_ITS | Clinical Summary ---
Author Organization [facility] Address [facility] [place] [address] Care Team Providers Care Staker Surveying Name Role Phone Medina Brody MD Primary Care Provider [phone] Allergies Active Allergy Reactions Criticality Noted Date [...] on file Legal Sex Female 8:44 PM SHERIFF'S DETECTIVE Gender Identity Female 03/16/2023 6:26 PM SHERIFF'S DETECTIVE Sexual Orientation Lesbian 03/16/2023 6: 26 PM SHERIFF'S DETECTIVE Last Filed Vital Signs Vital Sign Reading Time Taken Comments Blood Pressure 115/71 03/21/2024 11:30 AM SHERIFF'S DETECTIVE Pulse 81 03/21/2024 11:30 AM SHERIFF'S DETECTIVE Temperature 36.2 C (97.1 F) 03/21/2024 11:30 AM SHERIFF'S DETECTIVE Respiratory Rate 14 03/21/2024 11:30 AM SHERIFF'S DETECTIVE Oxygen Saturation 96% 03/21/2024 11:30 AM SHERIFF'S DETECTIVE Inhaled Oxygen Concentration - - Weight 65.3 kg (144 lb) 03/21/2024 11:30 AM SHERIFF'S DETECTIVE Height 166.4 cm (5' 5.5) 03/21/2024 11:30 AM CS T Body Mass Index 23.6 03/21/2024 11:30 AM SHERIFF'S DETECTIVE Plan of Treatment Health Maintenance Due Date [...] Most Recently Relevant to Health Maintenance [place] [email or web address] [email or web address] Care Teams Staker Surveying Relationship Specialty Start Date End Date Medina Brody MD PCP - General Family Medicine 07/03/21
--- OUTSIDE RECORDS SUMMARY | 2025-04-05 11:02 | XMS_ITS | Clinical Summary ---
Author Organization [facility] Address [address] [place] [address] Care Team Providers Care Post Tronic Machine Operator Name Role Phone Medina Brody MD Primary Care Provider [phone] Source Comments [facility],non-owned Affiliates and Associated Physician Practices is amultiple site organization consisting of ambulatory clinics and hospital sitesin [place], [place], [place] and [place]. This disclosure is being madepursuant to the Care Everywhere program and may not contain all information available regarding this patient. Last updated 18.[facility] Allergies Active Allergy Reactions Criticality Noted Date Comments Oxycodone-Aspirin Nausea and/or Vomiting 2016 Tacrolimus Swelling,Eye Redness 12/16/2023 Medications * Be aware that medications may not be up to date on this document. Alwaysverify current medications with the patient. melatonin 3 MG tablet Take 3 mg by mouth nightly as needed for Insomnia Active Vitamin D3, cholecalciferol , 2000 UNITS tablet Take 1 (one) tablet [...] Date Malignant melanoma of right knee Immunizations Immunization Administration Dates Next Due Covronal Moderna primary monovalent 12+ yr 0.5mL ,06/20/2020 [...] 2:11 PM CDT Height 165.1 cm (5' 5) 02/15/2022 2:11 PM CDT Body Mass Index [...] SCREENING 1964 LIPID TESTING 1964 MAMMOGRAM 1964 HIV SCREENING 02/02/1979 HEPATITIS C SCREENING 01/29/1982 DTAP/TDAP/TD VACCINES (1 - Tdap) 02/02/1983 Cervical Cancer Screening 02/02/1985 PAP SMEAR 02/02/1985 PAP with HPV 02/02/1994 PNEUMOCOCCAL VACCINE 50+ (1 of 1 - PCV) 02/02/2014 ZOSTER VACCINE (1 of 2) 02/02/2014 DEPRESSION SCREENING 05/09/2024 COVID-19 VACCINE (3 - 2024-2 6 season) 2025 07/18/2020, 06/20/2020 INFLUENZA VACCINE (#1) 2025 , 01/15/2020 Respiratory Syncytial Virus (RSV) Vaccine Pt: or [...] on patient's age to complete this topic Insurance [facility] [place] Advance Directives Documents on File Type Date Recorded Patient Pneumatic Tester Expl anation Adv Directive/Living Will/POA 08/06/2016 9:54 PM Care Teams Post Tronic Machine Operator Relationship Specialty Start Date End Date Medina Brody MD [address] [place] [address] PCP - General 01/03/19
--- OUTSIDE RECORDS SUMMARY | 2025-04-05 11:02 | XMS_ITS | Encounter Summary ---
Author Organization [facility] Address [address] [place] [address] Care Team Providers Care Hot Car Charger Name Role Phone Unavailable Primary Care Provider Unavailabl e Encounter Details Date Type Department Care Team (Late st Contact Info) Description 12/23/2000 Outpatient Historical [facility] TITRATOR - Medical [place] [address] [facility] [address] [address] Justin Garcia MD [address] [facility] [address] [address] Social History Tobacco Use Types Packs/Day Years Used Date Smoking Tobacco: Never Assessed Comments Unknown Sex and Gender Information Value Date Recorded Sex Assigned at Not on file Legal Sex Female 4:02 AM SHIP MANAGER Gender Identity Not on file Sexual Orientation Not on file documented as of this encounter Plan of Treatment Not on file documented as of this encounter Visit Diagnoses Not on filedocumented in this encounter
--- OUTSIDE RECORDS SUMMARY | 2025-04-05 11:02 | XMS_ITS | Encounter Summary ---
Author Organization [facility] Address [address] [place] [address] Care Team Providers Care Reinforced Ironworker Name Role Phone Unavailable Primary Care Provider Unavailabl e Encounter Details Date Type Department Care Team (Late st Contact Info) Description 12/10/1999 Outpatient Historical [facility] PERFORMANCE MAKEUP ARTIST - Medical [place] [facility] [address] [facility] [address] [address] Saul Ford MD [address] [place], [place] [id number] Social History Tobacco Use Types Packs/Day Years Used Date Smoking Tobacco: Never Assessed Comments Unknown Sex and Gender Information Value Date Recorded Sex Assigned at Not on file Legal Sex Female 4:02 AM LIVESTOCK FARMWORKER Gender Identity Not on file Sexual Orientation Not on file documented as of this encounter Plan of Treatment Not on file documented as of this encounter Visit Diagnoses Not on filedocumented in this encounter
--- OUTSIDE RECORDS SUMMARY | 2025-04-05 11:02 | XMS_ITS | Encounter Summary ---
Author Organization [facility] Address [address] [place] [address] Care Team Providers Care Steel Die Engraver Name Role Phone Unknown, Provider Primary Care Provider Medina Carmen MD Primary Care Provider [phone] Encounter Details Date Type Department Care Team (Late st Contact Info) Description 03/20/2018 Lab Requisition [facility] Care DermPath Lab [address] [facility] [place] [address] Janay Barajas MD [address] [facility] [address] [place] [address] Social History Tobacco Use Types Packs/Day Years [...] Bailey Omalley RN * Does person have difficulty dressing/bathing? Answer Date of Assessment Author No 08/05/2016 9:21 AM Bailey Omalley RN * Does person have difficulty doing errands alone? Answer Date of Assessment Author No 08/05/2016 9:21 AM Bailey Omalley RN documented as of this encounter Mental Status * Does person have difficulty concentrating/remembering/making decisions? Answer Entry Date Author No 08/05/2016 9:21 AM Bailey Omalley RN documented in this encounter Plan of Treatment Not on file documented as of this encounter Procedures Procedure Name Priority Date/Time Associated Diagnosis Comments DERMATOPATH TECHNICAL REPORT Routine 03/16/2018 12:00 AM QUALITY CONTROL SPECIALIST documented in this encounter Results * DERMATOPATH TECHNICAL REPORT (03/16/2018 12:00 AM QUALITY CONTROL SPECIALIST) Case Report Dermatopathology Report Case: [id number] Authorizing Provider: Janay Barajas MD Collected: 03/16/2018 12:00 AM Pathologist: Moni Murray MD Received: 03/20/2018 06:39 AM Specimen: Skin, mid back 10:40 AM [facility] DERMATOPATHOLOGY LABORATORY Clinical History 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 [place] papule. Check margins. 10:40 AM [facility] DERMATOPATHOLOGY LABORATORY Gross Description Specimen A: Received is one formalin filled container labeled with the patient's name and designated mid back. The specimen consists of a shave measuring [id number]. The margin is inked green. Jar 0. [facility] Dermatopathology Laboratory performed the technical component only. 10:40 AM [facility] DERMATOPATHOLOGY LABORATORY Embedded Images 10:40 AM [facility] DERMATOPATHOLOGY LABORATORY DISCLAIMER An external and internal positive and negative controls are appropriate for the histochemical, immunohistochemical and immunofluorescence stain(s) in this case (if any), except where stated explicitly. The performance characteristics of the stain(s) cited in this report were developed and its performance characteristic determined by the Dermatopathology Laboratory at [facility]. These tests need not be, and therefore are not, approved by the [place] Food and Drug Administration. The tests are used for clinical purposes. 8 10:40 AM QUALITY CONTROL SPECIALIST DERMATOPATHOLOGY LABORATORY at [address] QUALITY CONTROL SPECIALIST Pathology/Cytolog y TISSUE SPECIMEN FROM SKIN / Unknown 03/16/2018 03/20/2018 6:39 AM QUALITY CONTROL SPECIALIST Janay Barajas MD LAB - PATHOLOGY/CYTOLOGY ORD ERABLES Final Result DERMATOPATHOLOGY LABORATORY [facility] - Department of Dermatology [address] [place] [address], 5[address] Floor Lab [address] [phone] documented in this encounter Visit Diagnoses Not on filedocumented in this encounter Care Teams Steel Die Engraver Relationship Specialty Start Date End Date Unknown, Provider PCP - General 08/29/17 01/02/19 Medina Brody MD [address] [place] [address] PCP - General 01/03/19 documented as of this encounter
== END 2025-04-05 11:01 | disposition home or self-care (01) ==
LOC: ANHGOSHLAB 11:00
PROVIDERS: PCP Family Medicine; Visit Provider Otolaryngology
DX: E55.9 Vitamin D deficiency, unspecified (principal)
CPT/HCPCS: 36415; 82306